=== PATIENT | female | born 1995 | race Caucasian/White ===

== ENCOUNTER 2017-04-18 12:47 | Emergency (ER) | payer BC ==
[~2017-04-18] VITALS: Ht 170.2 cm; Wt 50.8 kg
--- NOTE | 2017-04-18 13:05 | PHYS DOC ---
Adult General Chief Complaint Chief Complaint: SEIZURE HPI HPI Patient is a 21 year old female who presents with possible seizure. 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 Patient was at her sister's house today with a sister's boyfriend witnessed her shaking all of her extremities and her lips turned blue. He states is unlike she was choking at first. This lasted for 3-5 minutes and then resolved on it's own. Patient denies loss of bowel or bladder function. Patient denies any history of seizure disorders. She denies any past medical history, she does smoke a pack per day and smokes marijuana daily. She denies any headache neck pain nausea vomiting. According patient arrived 5 days ago from [place] and was drinking about twice per week or less with her previous boyfriend and had a prescription for 1 mg Xanax which she's been on approximately twice per week for the last 3- 4 months. She started with half milligram and then increased it after a month to 1 mg. According to her sister entire family has a lot of anxiety issues. Review of Systems Review of Systems Constitutional: Denies fever or chills [] Eyes: Denies change in visual acuity, redness, or eye pain [] HENT: Denies nasal congestion or sore throat [] Respiratory: Denies cough or shortness of breath [] Cardiovascular: No additional information not addressed in HPI [] GI: Denies abdominal pain, nausea, vomiting, bloody stools or diarrhea [] : Denies dysuria or hematuria [] Musculoskeletal: Denies back pain or joint pain [] Integument: Denies rash or skin lesions [] Neurologic: Denies headache, focal weakness or sensory changes [] Endocrine: Denies polyuria or polydipsia [] Current Medications Current Medications Current Medications Medications (Trade) Dose Ordered Sig/Babita Start Time Stop Time Status Last Admin Dose Admin Sodium Chloride 1,000 ml @ 1,000 mls/hr 1X ONCE 04/18/17 13:30 04/18/17 14:29 DC 04/18/17 14:18 1,000 MLS/HR Allergies Allergies Allergies Coded Allergies Type Severity Reaction Last Updated Verified egg Allergy Intermediate 04/18/17 Yes milk Allergy Intermediate 04/18/17 Yes peanut Allergy Intermediate 04/18/17 Yes shellfish derived Allergy Intermediate 04/18/17 Yes tree nut Allergy Intermediate 04/18/17 Yes Physical Exam Physical Exam Constitutional: Well developed, well nourished, no acute distress, non-toxic appearance. [] HENT: Normocephalic, atraumatic, bilateral external ears normal, oropharynx moist, no oral exudates, nose normal. [] Eyes: PERRLA, EOMI, conjunctiva normal, no discharge. [] Neck: Normal range of motion, no tenderness, supple, no stridor. [] Cardiovascular:Heart rate regular rhythm, no murmur [] Lungs & Thorax: Bilateral breath sounds clear to auscultation [] Abdomen: Bowel sounds normal, soft, no tenderness, no masses, no pulsatile masses. [] Skin: Warm, dry, no erythema, no rash. [] Back: No tenderness, no CVA tenderness. [] Extremities: No tenderness, no cyanosis, no clubbing, ROM intact, no edema. [] Neurologic: Alert and oriented X 3, normal motor function, normal sensory function, no focal deficits noted. [] Psychologic: Affect normal, judgement normal, mood normal. [] Current Patient Data Vital Signs Vital Signs Date Time Temp Pulse Resp B/P (MAP) Pulse Ox O2 Delivery O2 Flow Rate FiO2 04/18/17 15:38 74 17 100/65 (77) 99 Room Air 04/18/17 12:55 97.9 97.9 Lab Values Laboratory Tests Test 04/18/17 13:15 04/18/17 14:05 04/18/17 14:23 White Blood Count 4.5 x10^3/uL (4.0-11.0) Red Blood Count 4.71 x10^6/uL (3.50-5.40) Hemoglobin 12.4 g/dL (12.0-15.5) Hematocrit 38.9 % (36.0-47.0) Mean Corpuscular Volume 83 fL (79-100) Mean Corpuscular Hemoglobin 26 pg (25-35) Mean Corpuscular Hemoglobin Concent 32 g/dL (31-37) Red Cell Distribution Width 18.5 % (11.5-14.5) H Platelet Count 209 x10^3/uL (140-400) Neutrophils (%) (Auto) 69 % (31-73) Lymphocytes (%) (Auto) 22 % (24-48) L Monocytes (%) (Auto) 8 % (0-9) Eosinophils (%) (Auto) 1 % (0-3) Basophils (%) (Auto) 0 % (0-3) Neutrophils # (Auto) 3.1 x10^3uL (1.8-7.7) Lymphocytes # (Auto) 1.0 x10^3/uL (1.0-4.8) Monocytes # (Auto) 0.4 x10^3/uL (0.0-1.1) Eosinophils # (Auto) 0.0 x10^3/uL (0.0-0.7) Basophils # (Auto) 0.0 x10^3/uL (0.0-0.2) Prothrombin Time 13.0 SEC (11.7-14.0) Prothrombin Time INR 1.0 (0.8-1.1) PTT 24 SEC (24-38) Sodium Level 139 mmol/L (136-145) Potassium Level 4.1 mmol/L (3.5-5.1) Chloride Level 102 mmol/L (98-107) Carbon Dioxide Level 29 mmol/L (21-32) Anion Gap 8 (6-14) Blood Urea Nitrogen 8 mg/dL (7-20) Creatinine 0.7 mg/dL (0.6-1.0) Estimated GFR (Cockcroft-Gault) 106.7 Glucose Level 163 mg/dL (70-99) H Lactic Acid Level 2.0 mmol/L (0.4-2.0) Calcium Level 8.7 mg/dL (8.5-10.1) Total Bilirubin 0.5 mg/dL (0.2-1.0) Direct Bilirubin 0.3 mg/dL (0.0-0.2) H Aspartate Amino Transferase (AST) 116 U/L (15-37) H Alanine Aminotransferase (ALT) 103 U/L (14-59) H Alkaline Phosphatase 91 U/L (46-116) Total Protein 7.1 g/dL (6.4-8.2) Albumin 3.6 g/dL (3.4-5.0) Urine Opiates Screen Neg (NEG) Urine Methadone Screen Neg (NEG) Urine Barbiturates Neg (NEG) Urine Phencyclidine Screen Neg (NEG) Urine Amphetamine/Methamphetamine Neg (NEG) Urine Benzodiazepines Screen Neg (NEG) Urine Cocaine Screen Neg (NEG) Urine Cannabinoids Screen Pos (NEG) Urine Ethyl Alcohol Neg (NEG) POC Urine HCG, Qualitative Hcg negative (Negative) Laboratory Tests 04/18/17 13:15 Laboratory Tests 04/18/17 13:15 EKG EKG [] Radiology/Procedures Radiology/Procedures [facility] [address] [place] [address] IMAGING REPORT Signed PATIENT: KELLY WEEMS ACCOUNT: [id number] : 1995 LOCATION: ER AGE: 21 SEX: F EXAM STATUS: REG ER ORD. PHYSICIAN: KURTIS RODRIGUES MD REASON: new seizure PROCEDURE: CT HEAD WO CONTRAST CT HEAD WO CONTRAST dated 04/18/2017 3:48 PM Indication:PT STATES SHE HAD A SEIZURE
NO PRIORS Comparison: No comparison is available. Technique: Noncontrast images were performed. One or more of the following individualized dose reduction techniques were utilized for this examination: 1. Automated exposure control 2. Adjustment of the mA and/or kV according to patient size 3. Use of iterative reconstruction technique Findings: There is no apparent intracranial mass, hemorrhage or abnormal extra-axial fluid collection. No area of abnormal density is seen in the brain. The ventricles and basilar cisterns are normally positioned. The sinuses and mastoid air cells are clear. IMPRESSION: No acute intracranial abnormality. Electronically signed by: Charo Thao Jr., MD (04/18/2017 4:12 PM) [facility] DICTATED and SIGNED BY: CHARO THAO Jr, MD DATE: 04/18/17 1610 CC: KURTIS RODRIGUES MD; NON,STAFF ~ Impressions: seizure Course & Med Decision Making Course & Med Decision Making Pertinent Labs and Imaging studies reviewed. (See chart for details) CT scan of her head did not show any acute process. Labs nonacute. I am not sure she had a seizure not her lactic acid was normal and she did not have any urinary incontinence. She is not tachycardic. She's been on a lot of stress. She had a prescription for Xanax 1 mg that she's been using as needed and doesn' t have anymore. We'll discharge her home with return precautions with her sister and 0.5 mg Xanax 5 tablets. Return precautions given. Her and her sister' s agreeable plans in stable condition. Sue Disclaimer Brookeon Disclaimer This electronic medical record was generated, in whole or in part, using a voice recognition dictation system. Departure Departure Impression: Primary Impression: Seizure Disposition: HOME, SELF-CARE Condition: STABLE Patient Instructions: Seizure, Adult Additional Instructions: I'm not sure if you had a seizure or not. Your lab and vitals do not show any abnormalities in the CAT scan of her head was also within normal limits. Your being discharged home, you can take 1-2 tablets of Xanax as needed for anxiety as directed. Return ER if you have another episode of this, developed a fever, confusion, neck stiffness, headache or you have any other concerns. Scripts Alprazolam (XANAX) 0.5 Mg Tablet 0.5-1 MG PO PRN Q6HRS Y for ANXIETY / AGITATION, #8 TAB 0 Refills Prov: KURTIS RODRIGUES MD 04/18/17 KURTIS RODRIGUES MD Apr 18, 2017 13:05
[2017-04-18] MEDS ORDERED: IV NORMAL SALINE 1000ML BAG 1,000 ML IV ONE (13:30)
[2017-04-18 13:36] LABS: CALCIUM 8.7 mg/dL (8.5-10.1); CREATININE 0.7 mg/dL (0.6-1.0); GFR 106.7; POTASSIUM 4.1 mmol/L (3.5-5.1)
[2017-04-18 13:37] LABS: BASO % 0 % (0-3); EOS % 1 % (0-3); HEMATOCRIT 38.9 % (36.0-47.0); HEMOGLOBIN 12.4 g/dL (12.0-15.5); LYMPH % 22 % (24-48); MEAN CORPUSCULAR HEMOGLOBIN 26 pg (25-35); MEAN CORPUSCULAR HGB CONC 32 g/dL (31-37); MEAN CORPUSCULAR VOLUME 83 fL (79-100); MONO % 8 % (0-9); NEUT % 69 % (31-73); PLATELET COUNT 209 x10^3/uL (140-400); RED BLOOD COUNT 4.71 x10^6/uL (3.50-5.40); RED CELL DISTRIBUTION WIDTH 18.5 % (11.5-14.5); WHITE BLOOD COUNT 4.5 x10^3/uL (4.0-11.0)
[2017-04-18 13:42] LABS: ALBUMIN 3.6 g/dL (3.4-5.0); DIRECT BILIRUBIN 0.3 mg/dL (0.0-0.2); TOTAL BILIRUBIN 0.5 mg/dL (0.2-1.0); TOTAL PROTEIN 7.1 g/dL (6.4-8.2)
[2017-04-18 14:51] LABS: BARBITURATES NEG (NEG); BENZODIAZEPINES NEG (NEG); CANNABINOIDS POS (NEG); COCAINE NEG (NEG); METHADONE NEG (NEG); OPIATES NEG (NEG); PHENCYCLIDINE NEG (NEG)
--- NOTE | 2017-04-18 16:15 | RAD ---
CT HEAD WO CONTRAST dated 04/18/2017 3:48 PM Indication:PT STATES SHE HAD A SEIZURE
NO PRIORS Comparison: No comparison is available. Technique: Noncontrast images were performed. One or more of the following individualized dose reduction techniques were utilized for this examination: 1. Automated exposure control 2. Adjustment of the mA and/or kV according to patient size 3. Use of iterative reconstruction technique Findings: There is no apparent intracranial mass, hemorrhage or abnormal extra-axial fluid collection. No area of abnormal density is seen in the brain. The ventricles and basilar cisterns are normally positioned. The sinuses and mastoid air cells are clear. IMPRESSION: No acute intracranial abnormality. Electronically signed by: Gavin Ross Jr., MD (04/18/2017 4:12 PM) [facility]
[2017-04-18 16:30] VITALS: BP 97/65
[2017-04-18] MEDS ORDERED: ALPR0.5T PO (16:44)
--- NOTE | 2017-04-18 17:32 | EKG ---
[facility] [address] [place] [address] Test Date: 2017-04-18 Test Time: 13:17:57 Pat Name: KELLY WEEMS Department: Room: Gender: F Line Walker: : 1995 Requested By: KURTIS RODRIGUES Order Number: [id number] Reading MD: Measurements Intervals [place] Rate: 85 P: 56 SD: 120 QRS: 24 QRSD: 82 T: 52 QT: 366 QTc: 436 Interpretive Statements SINUS RHYTHM LOW LIMB LEAD VOLTAGE RI6.01 Unconfirmed report No previous ECG available for comparison
== END 2017-04-18 17:05 | disposition home or self-care (01) ==
LOC: ER 12:47
DX: R56.9 Unspecified convulsions (principal); F43.9 Reaction to severe stress, unspecified; Z91.012 Allergy to eggs; Z91.011 Allergy to milk products; Z91.018 Allergy to other foods; Z91.010 Allergy to peanuts; Z91.013 Allergy to seafood
CPT/HCPCS: 36415; 70450; 80048; 80076; 80307; 81025; 83605; 85025; 85610; 85730; 93005; 96360; 96361; 99285; J7030; G0479